=== PATIENT | female | born 1985 | race Caucasian/White ===

== ENCOUNTER 2022-08-07 22:29 | Emergency (ER) | payer OTHER ==
[~2022-08-07] VITALS: Ht 165.1 cm; Wt 63.5 kg
[2022-08-08] MEDS ORDERED: ASA325 M1 PO (08:56)
[2022-08-08] MEDS ORDERED: PERCOCET 5-3251 EACH PO (08:56)
[2022-08-08] MEDS ORDERED: WALKER (08:58)
[2022-08-08] MEDS ORDERED: WHEELCHAIR (08:58)
== END 2022-08-08 13:36 | disposition home or self-care (01) ==
LOC: ER 22:29
DX: S82.291A Other fracture of shaft of right tibia, initial encounter for closed fracture (principal); S82.491A Other fracture of shaft of right fibula, initial encounter for closed fracture; W18.39XA Other fall on same level, initial encounter; Y93.89 Activity, other specified; Y92.89 Other specified places as the place of occurrence of the external cause; Y99.8 Other external cause status